=== PATIENT | female | born 1970 | race Caucasian/White ===

== ENCOUNTER → 2016-10-24 | Outpatient (CLI) | payer BC ==
[~2016-10-24] MED LIST: ALAV10TA PO; CYCL-36 PO; CYCL1TAB29 PO; DIAZ10TA PO; EXTR500C PO; LEVO-154 PO; LEVO175T2 PO; LO LTAB PO; LORA10TA PO; PHEN10TA PO
[2016-10-24 13:35] LABS: AUTOMATED NEUTROPHIL # 3.9 TH/MM3 (1.8-7.7); BASOPHIL # 0.1 TH/MM3 (0-0.2); BASOPHIL % 0.7 % (0.0-2.0); EOSINOPHIL # 0.1 TH/MM3 (0-0.4); EOSINOPHIL % 1.5 % (0.0-4.0); HEMATOCRIT 37.1 % (35.0-46.0); HEMO FLAGS DIFF FINAL; LYMPH % 34.6 % (9.0-44.0); LYMPHOCYTE # 2.5 TH/MM3 (1.0-4.8); MEAN CORPUSCULAR HEMOGLOBIN 28.2 PG (27.0-34.0); MEAN CORPUSCULAR HGB CONC 33.2 % (32.0-36.0); NEUT % 55.2 % (16.0-70.0); PLATELET COUNT 270 TH/MM3 (150-450); RED BLOOD COUNT 4.36 MIL/MM3 (4.00-5.30); RED CELL DISTRIBUTION WIDTH 13.8 % (11.6-17.2); WHITE BLOOD COUNT 7.1 TH/MM3 (4.0-11.0)
[2016-10-24 13:36] LABS: BLOOD, URINE NEG (NEG); GLUCOSE,URINE NEG (NEG); KETONE, URINE NEG (NEG); NITRITE,URINE NEG (NEG); SQUAMOUS EPITHELIAL CELL URINE 1 /hpf (0-5); URINE COLOR LIGHT-YELLOW (YELLW/STRAW)
[2016-10-24 13:56] LABS: ANION GAP 8 MEQ/L (5-15); BLOOD UREA NITROGEN 12 MG/DL (7-18); CHLORIDE 102 MEQ/L (98-107); GLOMERULAR FILTRATION RATE 76 ML/MIN (>89); GLUCOSE,FASTING 98 MG/DL (74-99); POTASSIUM 3.9 MEQ/L (3.5-5.1); SODIUM (NA) 139 MEQ/L (136-145)
[2016-10-24 14:01] LABS: BHCG SCREEN QUALITATIVE LESS THAN 1 MIU/ML (0-5)
== END ==
LOC: CPRE 12:41
PROVIDERS: ATTEND Obstetrics & Gynecology
DX: Z01.812 Encounter for preprocedural laboratory examination (principal); N92.1 Excessive and frequent menstruation with irregular cycle
CPT/HCPCS: 36415; 80048; 81001; 84703; 85025

== ENCOUNTER 2016-10-29 05:58 | Observation (INO) | payer BC ==
[~2016-10-29] VITALS: Ht 172.7 cm; Wt 65.5 kg
[~2016-10-29 05:58] MED LIST changes: -ALAV10TA PO; -CYCL-36 PO; -DIAZ10TA PO; -EXTR500C PO; -LEVO175T2 PO; -LO LTAB PO; -PHEN10TA PO
[2016-10-29] MEDS ORDERED: ceFAZolin 1,000 MG/NS 100 ML IV SCH ×2 (06:45)
[2016-10-29] MEDS ORDERED: DIAZ10TA PO (06:56)
[2016-10-29] MEDS ORDERED: PHEN10TA PO (06:56)
[2016-10-29] MEDS ORDERED: METOPROLOL TARTRATE 25 MG TAB PO PRN (07:00)
[2016-10-29] MEDS ORDERED: INSULIN HUMAN REGULAR 1,000 UNITS/10 ML VIAL SQ PRN (07:00)
[2016-10-29] MEDS ORDERED: SODIUM CHLORID 0.9% 500 ML IV SCH (07:00)
[2016-10-29] MEDS ORDERED: LACTATED RINGER'S 1000 ML IV SCH (07:00)
[2016-10-29 07:02] VITALS: BP 135/81; PULSE 89; RESP 20; TEMP 98.2; O2SAT 100
[2016-10-29] MEDS ORDERED: ESTROGENS CONJUGATED VAG CREA 15 APPL/30 GM TUBE ONE (07:07)
[2016-10-29] MEDS ORDERED: MIDAZOLAM HCL 2 MG/2 ML VIAL ONE (07:28)
[2016-10-29] MEDS ORDERED: APREPITANT 40 MG CAP ONE (07:28)
[2016-10-29] MEDS ORDERED: DEXAMETHASONE SOD PHOS 4 MG/ML VIAL ONE (07:28)
[2016-10-29] MEDS ORDERED: ACETAMINOPHEN 1000 MG/100 ML VIAL IV ONE (09:55)
[2016-10-29] MEDS ORDERED: DO NOT ADM ANY ANTICOAGULANT DRUGS XX PRN (10:25)
[2016-10-29] MEDS ORDERED: diphenhydrAMINE HCL 25 MG CAP PO PRN (10:30)
[2016-10-29] MEDS ORDERED: PROMETHAZINE HCL 25 MG TAB PO PRN (10:30)
[2016-10-29] MEDS ORDERED: SODIUM CHLORIDE 0.9% FLUSH 5 ML FLUSH FLUSH PRN (10:30)
[2016-10-29] MEDS ORDERED: PROMETHAZINE INJ 25 MG/ML VIAL IM PRN (10:30)
[2016-10-29] MEDS ORDERED: HYDROmorphone HCL 4 MG TAB PO PRN (10:30)
[2016-10-29] MEDS ORDERED: fentaNYL CITRATE 250 MCG/5 ML AMP ONE (10:31)
[2016-10-29] MEDS ORDERED: *morphine SULFATE 8 MG/ML PERIprocedure ONLY ONE ×3 (11:14→13:03)
[2016-10-29] MEDS: LACTATED RINGER'S 1000 ML INJ 1,000 ML IV SCH ×2 (11:30→17:42)
[2016-10-29] MEDS ORDERED: NEOSTIGMINE METHYLSULFATE 10 MG/10 ML VIAL IV PUSH ONE (12:00)
[2016-10-29] MEDS ORDERED: PROPOFOL 200 MG/20 ML AMP IV ONE (12:00)
[2016-10-29 13:39] VITALS: BP 121/71; PULSE 93; RESP 17; TEMP 95.9; O2SAT 96
[2016-10-29] MEDS: IBUPROFEN 600 MG TAB PO SCH ×2 (15:00→21:00)
[2016-10-29] MEDS: ONDANSETRON HCL 4 MG/2 ML VIAL IVP PRN (15:49)
[2016-10-29] MEDS: HYDROmorphone HCL PF 1 MG/ML VIAL IVP PRN ×2 (15:50→20:28)
[2016-10-29 15:58] VITALS: BP 128/77; PULSE 97; RESP 18; TEMP 96.2; O2SAT 100
[2016-10-29 20:00] VITALS: BP 125/70; PULSE 65; RESP 17; TEMP 96.3; O2SAT 100
[2016-10-29] MEDS: SODIUM CHLORIDE 0.9% FLUSH 5 ML FLUSH FLUSH SCH (20:51)
[2016-10-29 20:58] VITALS: O2SAT 98
[2016-10-29] MEDS ORDERED: ZOLPIDEM TARTRATE 5 MG TAB PO PRN (21:00)
[2016-10-29] MEDS ORDERED: KETOROLAC TROMETHAMINE 30 MG/ML (IVP) VIAL IV PUSH ONE (21:30)
[2016-10-29] MEDS ORDERED: ONDANSETRON INJ 8 MG in DEXTROSE 5% IN WATER INJ 50 ML IV PUSH ONE ×2 (21:30)
[2016-10-30] VITALS: BP 125/76; PULSE 70; RESP 17; TEMP 97.4; O2SAT 100
[2016-10-30] MEDS: ONDANSETRON HCL 4 MG/2 ML VIAL IVP PRN ×2 (00:43→08:23)
[2016-10-30] MEDS: LACTATED RINGER'S 1000 ML INJ 1,000 ML IV SCH (01:12)
[2016-10-30 04:00] VITALS: BP 125/66; PULSE 100; RESP 18; TEMP 98.4; O2SAT 97
[2016-10-30] MEDS: IBUPROFEN 600 MG TAB PO SCH ×2 (04:17→08:26)
[2016-10-30] MEDS: HYDROmorphone HCL 2 MG TAB PO PRN ×3 (04:17→12:23)
[2016-10-30] MEDS ORDERED: LEVOTHYROXINE SODIUM 25 MCG TAB PO SCH (06:00)
[2016-10-30] MEDS ORDERED: LEVOTHYROXINE SODIUM 150 MCG TAB PO SCH (06:00)
[2016-10-30 07:52] LABS: AUTOMATED NEUTROPHIL # 11.2 TH/MM3 (1.8-7.7); BASOPHIL % 0.1 % (0.0-2.0); HEMATOCRIT 30.3 % (35.0-46.0); HEMO FLAGS DIFF FINAL; LYMPH % 17.7 % (9.0-44.0); LYMPHOCYTE # 2.7 TH/MM3 (1.0-4.8); MEAN CELL VOLUME 88.2 FL (80.0-100.0); MEAN CORPUSCULAR HEMOGLOBIN 28.4 PG (27.0-34.0); MEAN CORPUSCULAR HGB CONC 32.2 % (32.0-36.0); MONO % 9.8 % (0.0-8.0); NEUT % 72.4 % (16.0-70.0); PLATELET COUNT 198 TH/MM3 (150-450); RED BLOOD COUNT 3.43 MIL/MM3 (4.00-5.30); RED CELL DISTRIBUTION WIDTH 14.1 % (11.6-17.2); WHITE BLOOD COUNT 15.4 TH/MM3 (4.0-11.0)
[2016-10-30 08:00] VITALS: BP 116/71; PULSE 96; RESP 18; TEMP 97.7; O2SAT 99
[2016-10-30 08:22] LABS: BICARBONATE 24.1 MEQ/L (21.0-32.0); POTASSIUM 3.8 MEQ/L (3.5-5.1)
[2016-10-30] MEDS: SODIUM CHLORIDE 0.9% FLUSH 5 ML FLUSH FLUSH SCH (08:26)
--- NOTE | 2016-10-30 08:31 | HHI.PR ---
Subjective Remarks Doing well, pain is well controlled, eating well. Nausea is better, Objective Vital Signs Vital Signs Date Time Temp Pulse Resp B/P Pulse Ox O2 Delivery O2 Flow Rate FiO2 10/30/16 04:00 98.4 100 18 125/66 97 10/30/16 00:00 97.4 70 17 125/76 100 10/29/16 20:58 98 21 10/29/16 20:00 96.3 65 17 125/70 100 10/29/16 15:58 96.2 97 18 128/77 100 10/29/16 13:39 95.9 93 17 121/71 96 10/29/16 13:00 98.2 68 16 110/73 99 Room Air 10/29/16 12:00 82 14 121/74 100 10/29/16 11:30 81 14 124/79 100 10/29/16 11:15 92 12 110/76 100 10/29/16 11:00 85 12 118/71 100 Nasal Cannula 2 10/29/16 10:45 95 12 109/69 100 10/29/16 10:30 100 21 112/72 100 Nasal Cannula 3 10/29/16 10:24 97.6 87 17 115/75 99 Nasal Cannula 3 I/O 10/29/16 10/29/16 10/29/16 10/30/16 10/30/16 10/30/16 07:00 15:00 23:00 07:00 15:00 23:00 Intake Total 1833 ml 2590 ml Output Total 670 ml 300 ml 700 ml Balance 1163 ml -300 ml 1890 ml Intake Oral 90 ml 240 ml IV Total 493 ml 2350 ml Other 1250 ml Output Urine Total 150 ml 300 ml 700 ml Estimated Blood Loss 20 ml Other 500 ml Result Diagram: 10/30/16 0702 Objective Remarks Chest is clear, regular rate and rhythm. Abdomen is soft and non-distended. Incision is clean and dry. Ext no CCE. A/P Assessment and Plan Post Op Day 1 Doing well Home today and return to office in two weeks. Abundio Anderson MD Oct 30, 2016 08:31
[2016-10-30] MEDS ORDERED: LORATADINE 10 MG TAB PO SCH (09:00)
[2016-10-30 10:15] VITALS: O2SAT 95
[2016-10-30 12:00] VITALS: BP 119/71; PULSE 98; RESP 18; TEMP 98.2; O2SAT 98
[2016-10-30] MEDS ORDERED: LACTATED RINGER'S 1000 ML INJ 1,000 ML IV ONE (12:00)
[2016-10-30] MEDS ORDERED: KETOROLAC TROMETHAMINE 60 MG/2 ML (IM) VIAL IM ONE (12:00)
[2016-10-30] MEDS ORDERED: ONDANSETRON HCL 4 MG/2 ML VIAL IV PUSH ONE (12:00)
--- NOTE | 2016-10-30 13:39 | MP ---
cc: LAYLAJUANITOLEO DATE OF SURGERY 10/29/2016 PREOPERATIVE DIAGNOSIS Menorrhagia POSTOPERATIVE DIAGNOSIS Menorrhagia PROCEDURE Laparoscopic-assisted vaginal hysterectomy and bilateral salpingectomy ANESTHESIA General endotracheal intubation SURGEON Prem Anderson MD FINDINGS Examination under anesthesia, the vagina was clean. The cervix was clean without lesions or discharge. The uterus was normal size, shape and consistency and freely mobile. The adnexa were negative for masses. Laparoscopic exam revealed a normal-sized uterus with a probably 4-5 cm myoma. The tubes were normal. The ovaries were normal. Posterior and anterior cul-de-sac were normal. COMPLICATIONS None COUNTS Correct ESTIMATED BLOOD LOSS 50 cc FLUIDS Crystalloid CONDITION The patient tolerated the procedure well and went to the recovery room in good condition. INDICATIONS FOR THE PROCEDURE This patient has had bleeding problems for years and years. We have worked her up for a bleeding diathesis that was negative. We did a endometrial ablation and that worked for some time. Her period started coming back and we went ahead tried some hormone therapy as she was fairly close to menopause. The hormone therapy, however, gave her migraines with aura, so we felt that was not acceptable. Finally she is coming to the operating room for a laparoscopic assisted vaginal hysterectomy. She understands the risks and benefits and has agreed to proceed. PROCEDURE IN DETAIL The patient was taken to the operating room, identified by name band and verbally given a general anesthetic and placed in dorsal lithotomy position. She was prepped and draped in the usual sterile fashion and a time-out was taken. Once we all agreed, proceeded with the examination under anesthesia and placing the Campa catheter. A weighted speculum was placed in the vagina, the anterior lip of the cervix grasped with a single-tooth tenaculum. The cervix was then cannulized with a Hulka clamp for uterine manipulation. Changing our gloves, we went to the umbilical area. A small subumbilical incision was made and a #5 trocar was introduced under direct vision without difficulty. A pneumoperitoneum was created with 3 liters of CO2. Inferior lateral to the umbilicus on the left we put a 10-mm port under direct vision and a 5-mm port on the right for manipulation. At this point we placed her in Trendelenburg, visualized all the internal organs and proceeded with the hysterectomy. The round ligaments were taken down bilaterally and a bladder flap was created with the harmonic 7 scalpel. The mesosalpinx of the fallopian tubes were then taken down with harmonic scalpel and the broad ligament was taken down to the level of the uterine vessels without difficulty. The uterine vessels were skeletonized and taken to the level of the internal cervical os with the harmonic scalpel. Hemostasis was excellent. Once this had been accomplished the uterus blanched nicely. The bladder flap was pushed back a little farther out of harm's way and, using the harmonic scalpel, we transected the cervix without difficulty after removing the Hulka clamp. Once this had been accomplished the Kleppinger forceps was used to burn the endocervix and the cervical bed. Small bleeders were coagulated with the Kleppinger and a large amount of fluid was used to clean the pelvis out. At this point to the morcellator was placed into the 12-mm port and the specimen was morcellated without difficulty. We turned this in for pathologic evaluation, then we cleaned out the gutters and the cul-de-sac with a large amount of fluid and placed a piece of Interceed over the cervical stump to prevent adhesions. At this point and the 10-mm port was removed and the fascia was repaired with a 2-0 Vicryl. The air was released through the second puncture and the laparoscope was removed under direct vision without difficulty. The skin was repaired with a 4-0 Monocryl in a subcuticular manner. At this point, all the instruments were removed. She tolerated the procedure well and went to the recovery room in good condition. RMD MARKUS Malcolm/JFERY /2:28 PM /1:24 PM
== END 2016-10-30 14:40 | disposition home or self-care (01) ==
LOC: HSDC 05:58 → HSDI 10:23 → HOCB 13:31
PROVIDERS: ADMIT Obstetrics & Gynecology; ATTEND Obstetrics & Gynecology
DX: D25.9 Leiomyoma of uterus, unspecified (principal); F41.9 Anxiety disorder, unspecified; G43.109 Migraine with aura, not intractable, without status migrainosus; Z88.5 Allergy status to narcotic agent; Z88.0 Allergy status to penicillin; Z88.2 Allergy status to sulfonamides; Z88.6 Allergy status to analgesic agent; Z91.040 Latex allergy status
CPT/HCPCS: 00944; 58552; 80048; 85025; 86850; 86900; 86901; 88307; 94150; C1765; G0378; J0131; J0690; J1100; J1170; J1885; J2250; J2270; J2405; J2550; J2710; J3010; J7120; J8501; Q0169